=== PATIENT | female | born 1960 | race African-American/Black ===

== ENCOUNTER 2017-07-31 13:44 | Day surgery (SDC) | payer OTHER ==
[2017-07-31] MEDS ORDERED: FENTAnyl 50 MCG/ML VIAL (15:42)
[2017-07-31] MEDS ORDERED: MIDAZOLAM 1 MG/ML 2 ML INJ ×3 (15:42)
== END 2017-07-31 15:56 | disposition home or self-care (01) ==
LOC: GIL 13:44
DX: Z12.11 Encounter for screening for malignant neoplasm of colon (principal); K64.8 Other hemorrhoids
CPT/HCPCS: 45378